=== PATIENT | male | born 1975 | race Caucasian/White ===

== ENCOUNTER 2019-06-03 22:04 | Outpatient (REF) | payer OTHER, SELFPAY ==
[2019-06-05 12:31] LABS: Syphilis Serology (RPR) Negative (Negative); Varicella IgG Antibody Positive (See Note)
[2019-06-05 13:15] LABS: HBs Antibody, Quant <3.1 mIU/mL (See Note); HIV-1/2 Ag & Ab Screen Negative (Negative); Hepatitis B Surface Ab Negative (See Note); Hepatitis C Ab w Rflx HCV PCR Negative (Negative)
[2019-06-05 14:15] LABS: Chlamydia Result Negative (Negative); GC Result Negative (Negative)
[2019-06-06 12:05] LABS: HSV Type 1 Ab, IgG Positive (Negative); HSV Type 2 Ab, IgG Negative (Negative)
== END 2019-06-03 22:24 ==
LOC: NCHCN 22:04
PROVIDERS: PCP Emergency Medicine; Visit Provider Nurse Practitioner Family
DX: Z11.3 Encounter for screening for infections with a predominantly sexual mode of transmission (principal); Z11.4 Encounter for screening for human immunodeficiency virus [HIV]; Z11.59 Encounter for screening for other viral diseases
CPT/HCPCS: 86706; 86787; 86803; 87389; 87491; 87591; 86592; 86695; 86696

== ENCOUNTER 2022-01-02 14:55 | Emergency (ER) | payer MEDICAID, SELFPAY ==
[2022-01-02 15:01] VITALS: BP 138/84; PULSE 83; RESP 18; TEMP 36.7; O2SAT 98
--- NOTE | 2022-01-02 15:10 | ED.GENADUL_ITS ---
Discharge Plan Disposition Patient Disposition: HOME Condition: Improving Discharge Details Clinical Impression: Laceration of right wrist Primary Care Provider: Renetta Barney ED Provider: Irvin Ling Discharge Instructions Instructions: Laceration (ED) Additional Instructions: Keep wound clean and dry, may begin daily gentle cleanse with soap and water, pat dry and dressing change in 48 to 72 hours. Return for fever, numbness, weakness, discharge from the wound or any other acute concerns. Elevate above the level of the heart to reduce pain and swelling. Tylenol and/or ibuprofen may be used for pain. You may continue to ice 20 minutes at a time for comfort as well. Return in 10-12 days time for removal of sutures. Medical Decision Making This is a 46-year-old male who cut his right wrist with sahara material. He states it was clean and that he believes his tetanus is up-to-date. There is no motor weakness or numbness. He has normal motor and sensory examination. There is a linear approximate 3 and half centimeter laceration on the volar aspect with exposure of underlying tendon on the ulnar side. The tendon sheath is not involved. The wound was liberally irrigated, examined in a bloodless field without evidence of foreign body, repaired with interrupted sutures. Patient will return in 7 to 10 days time for removal. He understands home care. HPI General Mode of arrival: ambulatory . Date/Time Provider Initiated Documentation: 01/02/22 15:00 . Limitations to Documentation: no limitations . Information obtained by: patient . History of Present Illness 46 year old M presents to the emergency department with the chief complaint of Right wrist laceration, no other complaint, described as moderate, Quality is described as dull and constant, and is localized to the right and upper extremity. Patient reports no radiation. Patient started experiencing this hour(s) and it has been constant. No relieving factors improve symptom(s), No exacerbating factors reported . Patient notes denies cough and weakness. Patient did receive the following treatments prior to arrival, cold therapy General Stated Complaint: Laceration LILIBETH: 4 Review of Systems Narrative: 6 systems reviewed and otherwise negative no weakness or numbness, states he believes tetanus is up-to-date [facility] All Active Problems (Updated 01/02/22 @ 15:16 by Irvin Ling MD) Laceration of right wrist (Acute) Social History Smoking risk assessment performed?: No Do you feel safe at home: Yes Do you feel safe in your relationship?: Yes Exam Narrative Exam Narrative: GEN: awake, alert, oriented 3. Pleasant, well groomed, interactive. HEAD: Normocephalic, atraumatic ENT: Mucous membranes moist, External ear exam unremarkable EYES: PERRL, EOMI NECK: Full ROM, no JUSTIN, no menigismus CHEST/RESP: No respiratory distress EXT: Full ROM, no edema, no rash. There is normal motor and sensory function throughout. The right volar wrist has a obliquely oriented laceration measuring approximately 3-1/2 cm. It exposes the underlying tendon on the ulnar aspect but the tendon sheath is not involved. Capillary refill less than 2 seconds. Neuro: Grossly normal neurologic exam, conversant, interactive. Psych: Speech fluent, thoughts congruent, affect normal Course Vital Signs Vital signs: Vital Signs Temperature 36.7 C 01/02/22 15:01 Pulse 83 01/02/22 15:01 Respiratory Rate 18 01/02/22 15:01 Blood Pressure 138/84 01/02/22 15:01 Pulse Oximetry 98 01/02/22 15:01 Temperature 36.7 C 01/02/22 15:01 Temperature Source Temporal Artery Scan 01/02/22 15:01 Pulse 83 01/02/22 15:01 Respiratory Rate 18 01/02/22 15:01 Respiratory Effort Non-Labored 01/02/22 15:04 Blood Pressure 138/84 01/02/22 15:01 Blood Pressure Position Sitting 01/02/22 15:01 Pulse Oximetry 98 01/02/22 15:01 Oxygen Delivery Method Room Air 01/02/22 15:01 Oxygen Flow Rate 0 01/02/22 15:01 Procedures Laceration Laceration 1: Site: hand Side (If applicable): right Size (cm): 3.5 Description: linear Depth: simple, single layer Local Anesthetic: other anesthetic Pre-repair: wound explored and irrigated extensively Skin layer closed with: nylon Size (cm): 4-0 Number of sutures: 4 Technique: simple, interrupted
[2022-01-02] MEDS: Lidocaine/Epinephri/Tetracaine Topical Gel 3 ML (15:13)
[2022-01-02 15:52] VITALS: BP 138/84; PULSE 83; RESP 18; TEMP 36.7; O2SAT 98
== END 2022-01-02 15:53 | disposition home or self-care (01) ==
LOC: ER 15:40
PROVIDERS: Emergency Provider Emergency Medicine; PCP Family Medicine
DX: S61.511A Laceration without foreign body of right wrist, initial encounter (principal); W26.8XXA Contact with other sharp object(s), not elsewhere classified, initial encounter
CPT/HCPCS: 12002; 99281; 99282

== ENCOUNTER 2023-11-30 15:36 | Outpatient (REF) | payer MEDICAID, SELFPAY ==
[2023-11-30 20:46] LABS: Cholesterol 345 mg/dL (<200); HDL Cholesterol 36 mg/dL (40-60); TSH (W/Ref FT4) 2.71 uIU/mL (0.36-3.74); Triglyceride 602 mg/dL (<150)
[2023-11-30 21:03] LABS: LDL CHOLESTEROL 209 mg/dL (<100)
== END 2023-11-30 15:37 | disposition home or self-care (01) ==
LOC: NCHCN 15:36
PROVIDERS: PCP Family Medicine; Visit Provider Family Medicine
DX: R63.5 Abnormal weight gain (principal); E78.2 Mixed hyperlipidemia
CPT/HCPCS: 80061; 83721; 84443

== ENCOUNTER 2024-11-19 20:06 | Outpatient (REF) | payer MEDICAID, SELFPAY ==
[2024-11-19 21:25] LABS: ALT 31 U/L (16-63); AST 21 U/L (15-37); Albumin 4.1 g/dL (3.4-5.0); Alkaline Phosphatase 86 U/L (46-116); Anion Gap 9.9 mmol/L (3-11); BUN 13 mg/dL (7-18); Bilirubin, Total 0.2 mg/dL (0.2-1.0); CO2 29.1 mmol/L (21.0-32.0); CREATININE 0.9 mg/dL (0.70-1.30); Calcium 9.4 mg/dL (8.5-10.1); Chloride 106 mmol/L (98-107); Glucose 115 mg/dL (74-106); Potassium 3.8 mmol/L (3.5-5.1); Sodium 145 mmol/L (136-145); Total Protein 7.5 g/dL (6.4-8.2)
[2024-11-19 21:58] LABS: Calculated LDL 76 mg/dL (<100); Cholesterol 184 mg/dL (<200); HDL Cholesterol 45 mg/dL (>or=40); Triglyceride 317 mg/dL (<150)
== END 2024-11-19 20:07 | disposition home or self-care (01) ==
LOC: NCHCN 20:06
PROVIDERS: PCP Family Medicine; Visit Provider Family Medicine
DX: Z79.899 Other long term (current) drug therapy (principal); E78.49 Other hyperlipidemia
CPT/HCPCS: 80053; 80061

== ENCOUNTER 2024-12-10 19:43 | Outpatient (REF) | payer MEDICAID, SELFPAY | END 2024-12-10 19:44 | disposition home or self-care (01) | LOC: NCHCN 19:43 | PROVIDERS: PCP Family Medicine; Visit Provider Family Medicine | DX: Z13.88 Encounter for screening for disorder due to exposure to contaminants (principal) | CPT/HCPCS: 83655 ==